=== PATIENT | female | born 2005 | race Caucasian/White ===

== ENCOUNTER 2023-09-01 15:39 | Emergency (ER) | payer SELFPAY | END 2023-09-01 16:43 | disposition left against medical advice (07) | LOC: ED 15:39 → EDBD 15:48 → ED 15:48 | DX: O62.9 Abnormality of forces of labor, unspecified (principal); Z3A.36 36 weeks gestation of pregnancy; Z53.29 Procedure and treatment not carried out because of patient's decision for other reasons ==